=== PATIENT | male | born 1965 | race Caucasian/White ===

== ENCOUNTER 2022-04-17 00:04 | Emergency (ER) ==
[2022-04-17] MEDS ORDERED: Bacitracin 1 PK ONE (03:51)
[2022-04-17] MEDS ORDERED: Boostrix 0.5 ML (Tdap) VIAL (>/=7 yrs of age) ONE (04:04)
== END 2022-04-17 04:10 | disposition home or self-care (01) ==
LOC: CSHERS 00:04
DX: S61.401A Unspecified open wound of right hand, initial encounter (principal); S60.511A Abrasion of right hand, initial encounter; Z23 Encounter for immunization; W26.8XXA Contact with other sharp object(s), not elsewhere classified, initial encounter
CPT/HCPCS: 90471; 90715; 99283

== ENCOUNTER 2022-04-24 12:23 | Emergency (ER) | payer SELFPAY | END 2022-04-24 13:29 | disposition left against medical advice (07) | LOC: CSHERS 12:23 | DX: Z53.21 Procedure and treatment not carried out due to patient leaving prior to being seen by health care provider (principal) ==